=== PATIENT | female | born 1955 ===

== ENCOUNTER 2018-05-18 11:02 | Observation (INO) | payer OTHER ==
[2018-05-18] MEDS ORDERED: Sodium Chloride 0.9% 1,000 ML IV ONE (11:24)
--- NOTE | 2018-05-18 11:40 | C.PDOC ---
History Of Present Illness 63 y/o female,w/PMhx of HTN and hypothyroidism, presents to the ER complaining of palpitations which began in the morning today. Patient was in the clinic and the nurse found that patient has heart rate in the 160's. Patient was found to be in SVT upon arrival to ER. She notes that she has history of similar episodes and her last episode was in February 2018. Currently, patient denies having CP,SOB, nausea, vomiting, fever, and chills. Chief Complaint (Nursing): High Blood Pressure History Per: Patient History/Exam Limitations: no limitations Onset/Duration Of Symptoms: Hrs Current Symptoms Are (Timing): Still Present Severity: Moderate Past Medical History Reviewed: Historical Data, Nursing Documentation, Vital Signs Vital Signs: Last Vital Signs Temp 97.2 F L 05/18/18 11:10 Pulse 171 H 05/18/18 11:10 Resp 20 05/18/18 11:10 BP 108/72 05/18/18 11:10 Pulse Ox 95 05/18/18 11:10 - Medical History PMH: HTN, Hypothyroidism Surgical History: No Surg Hx Family History: States: No Known Family Hx - Social History Hx Tobacco Use: No Hx Alcohol Use: No Hx Substance Use: No - Immunization History Hx Tetanus Toxoid Vaccination: No Hx Influenza Vaccination: No Hx Pneumococcal Vaccination: No Review Of Systems Except As Marked, All Systems Reviewed And Found Negative. Constitutional: Negative for: Fever, Chills Cardiovascular: Positive for: Palpitations. Negative for: Chest Pain Respiratory: Negative for: Shortness of Breath Gastrointestinal: Negative for: Nausea, Vomiting Physical Exam - Physical Exam Appears: Non-toxic, No Acute Distress Skin: Normal Color, Warm, Dry Head: Atraumatic, Normacephalic Eye(s): bilateral: Normal Inspection Nose: Normal Oral Mucosa: Moist Neck: Supple Chest: Symmetrical Cardiovascular: Rhythm Regular, Other (tachycardia) Respiratory: Normal Breath Sounds, No Rales, No Rhonchi, No Wheezing Gastrointestinal/Abdominal: Normal Exam, Soft, No Tenderness, No Guarding, No Rebound Neurological/Psych: Oriented x3, Normal Speech ED Course And Treatment - Laboratory Results Result Diagrams: 05/20/18 06:48 05/20/18 06:48 Interpretation Of ECst EKG: SVT 170 bpm. 2nd EKG: NSR 87 bpm with normal intervals and normal axises O2 Sat by Pulse Oximetry: 95 (RA) Pulse Ox Interpretation: Normal - Other Rad CXR X-Ray: Viewed By Me, Read By Radiologist Interpretation: Date of service: 05/18/2018. PROCEDURE: CHEST RADIOGRAPH, 1 VIEW. HISTORY: chest pain. COMPARISON: None available. FINDINGS: LUNGS: The lungs are well inflated and clear. PLEURA: No pneumothorax or pleural effusion. CARDIOVASCULAR: The heart is normal in size. There are aortic at herosclerotic calcifications present. OSSEOUS STRUCTURES: Within normal limits for the patient's age. VISUALIZED UPPER ABDOMEN: Normal. OTHER FINDINGS: None. IMPRESSION: No active pulmonary disease. Medical Decision Making Medical Decision Making: Plan: --Labs --UA --EKG --CXR --Adenosine IV --IV Fluids --O2 Via Nasal Cannula Updates: Patient has EKG NSR 87 bpm after patient was treated with Adenosine IV. 12:49 Case d/w Dr. Beltran who accepted patient to his service. Patient agreeable w/POC to admit for further evaluation and management. Disposition Counseled Patient/Family Regarding: Studies Performed, Diagnosis - Disposition Disposition: HOSPITALIZED Disposition Time: 12:49 Condition: IMPROVED - Clinical Impression Clinical Impression: SVT (supraventricular tachycardia), Palpitations - Scribe Statement The provider has reviewed the documentation as recorded by the Izabel Tadeo Provider Attestation: All medical record entries made by the Scribe were at my direction and personally dictated by me. I have reviewed the chart and agree that the record accurately reflects my personal performance of the history, physical exam, medical decision making, and the department course for this patient. I have also personally directed, reviewed, and agree with the discharge instructions and disposition.
[2018-05-18 11:48] LABS: BASO # 0.1 K/uL (0.0-0.2); BASO % 0.7 % (0.0-2.0); EOS # 0.2 K/uL (0.0-0.7); LYMPH # 1.5 K/uL (1.0-4.3); LYMPH % 18.3 % (20.0-40.0); MEAN CELL VOLUME 88.2 fL (81.0-99.0); MEAN CORPUSCULAR HEMOGLOBIN 29.3 pg (27.0-31.0); MEAN CORPUSCULAR HGB CONC 33.2 g/dL (33.0-37.0); MONO # 0.6 K/uL (0.0-0.8); MONO % 7.8 % (0.0-10.0); NEUT # 5.8 K/uL (1.8-7.0); NEUT % 71.2 % (50.0-75.0); NRBC % 0.1 % (0.0-2.0); RBC 4.76 Mil/uL (3.80-5.20); RED CELL DISTRIBUTION WIDTH 14.8 % (11.5-14.5); WHITE BLOOD COUNT 8.1 K/uL (4.8-10.8)
--- NOTE | 2018-05-18 11:48 | RAD ---
Date of service: 05/18/2018 PROCEDURE: CHEST RADIOGRAPH, 1 VIEW HISTORY: chest pain COMPARISON: None available. FINDINGS: LUNGS: The lungs are well inflated and clear. PLEURA: No pneumothorax or pleural effusion. CARDIOVASCULAR: The heart is normal in size. There are aortic atherosclerotic calcifications present. OSSEOUS STRUCTURES: Within normal limits for the patient's age. VISUALIZED UPPER ABDOMEN: Normal. OTHER FINDINGS: None. IMPRESSION: No active pulmonary disease.
[2018-05-18 11:58] LABS: INR 1.1; PROTHROMBIN TIME 12.1 SECONDS (9.7-12.2)
[2018-05-18 12:25] LABS: ALB/GLOB RATIO 1.3 (1.0-2.1); ALBUMIN 4.6 g/dL (3.5-5.0); ALT/SGPT 36 U/L (9-52); AST/SGOT 38 U/L (14-36); BLOOD UREA NITROGEN 18 mg/dL (7-17); CALCIUM 9.1 mg/dl (8.6-10.4); GFR NON-AFRICAN AMERICAN > 60
--- NOTE | 2018-05-18 15:18 | CP.PCM.HP ---
History of Present Illness - History of Present Illness History of Present Illness: PGY1 Medicine H and P for Dr. Beltran Pt is 63 year old female with PMHx of hypothyroidism presenting for sudden-onset palpitations that began today around 8:30 in the morning, associated with dizziness, nausea and diaphoresis. Pt was walking at home when she started developing palpitations. She has had palpitations like this, associated with nausea, vomiting, and dizziness in the past. She went to her PMD's office today, and she was noted to have BP 90s/60s and HR of 160. She was sent to the ED. Pt noted to be in SVT at 171, and this episode persisted until she received adenosine 6 mg IVP in the ED. With the palpitations she had diaphoresis, dizziness and nausea, but denies blurry vision, hearing problems, chest pain, dyspnea, focal weakness, and vomiting. This is not her first episode of palpitations. She states she has had this problem for over ten years. Pt states that her last episode was in February 2018, but did not come to the hospital or see any physician for her problem because it resolved shortly afterwards. Currently, she is asymptomatic and has no complaints. During episode she denies chest pain or difficulty breathing. Currently, she denies dysuria, hematuria, back pain, numbness, tingling, paresthesias, abdominal pain, nausea, vomiting PMHx: Hypothyroidism PSHx: Meds: Synthroid (pt does not know the dosage in mcg), metoprolol tartrate 50 mg (but states that she splits 1 tablet into half, takes the first half in AM, and the second half in PM, unconsistently). Pt sparingly takes potassium chloride and vitamin B12, nothing recently. Allergies: NKDA FHx: Mother and father had lung and heart problems but has trouble specifying. Her older sister from cancer. One of her sisters also suffers from episode of palpitations requiring a PM. SHx: Pt denies any tobacco usage, drinks EtOH sparingly, and denies any illicit drug use. 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 She denies any recent travel history and sick contact at home. Pt is up to date on her vaccination. Pt is menopausal. Present on Admission - Present on Admission Any Indicators Present on Admission: No Review of Systems - Review of Systems All systems: reviewed and no additional remarkable complaints except (as per HPI) - Musculoskeletal Additional comments: Pt endorses pain in the Achilles bilaterally and between the first and second metatarsals bilaterally that worsen upon climbing up the stairs for two weeks. Past Patient History - Past Social History Smoking Status: Never Smoked - CARDIAC Hx Hypertension: Yes - ENDOCRINE/METABOLIC Hx Hypothyroidism: Yes - PSYCHIATRIC Hx Substance Use: No Meds Allergies/Adverse Reactions: Allergies Allergy/AdvReac Type Severity Reaction Status Date / Time No Known Allergies Allergy Verified 05/18/18 11:14 Physical Exam - Constitutional Appears: Non-toxic, No Acute Distress - Head Exam Head Exam: ATRAUMATIC, NORMAL INSPECTION - Eye Exam Eye Exam: EOMI, Normal appearance, PERRL - ENT Exam ENT Exam: Mucous Membranes Moist - Neck Exam Neck exam: Positive for: Normal Inspection. Negative for: Lymphadenopathy, Tenderness - Respiratory Exam Respiratory Exam: Clear to Auscultation Bilateral. absent: Decreased Breath Sounds, Rales, Rhonchi, Wheezes, Respiratory Distress, Stridor - Cardiovascular Exam Cardiovascular Exam: REGULAR RHYTHM, +S1, +S2. absent: Bradycardia, Tachycardia, Diastolic murmur, Irregular Rhythm, JVD, Systolic Murmur - GI/Abdominal Exam GI & Abdominal Exam: Normal Bowel Sounds, Soft. absent: Distended, Firm, Guarding, Rebound, Rigid, Tenderness - Extremities Exam Extremities exam: Positive for: normal capillary refill, normal inspection, tenderness (mild tenderness to bilateral achilles and 1st and 2nd interdigitous area; no erythema, no edema, no ecchymosis), pedal pulses present (2+ radial bilaterally, 2+ DP bilaterally). Negative for: calf tenderness, pedal edema - Back Exam Back exam: NORMAL INSPECTION - Neurological Exam Neurological exam: Alert, Oriented x3 - Psychiatric Exam Psychiatric exam: Normal Affect, Normal Mood - Skin Skin Exam: Intact, Normal Color, Warm Results - Vital Signs Recent Vital Signs: Last Vital Signs Temp 99.1 F 05/18/18 14:25 Pulse 77 05/18/18 14:25 Resp 22 05/18/18 14:25 BP 96/50 L 05/18/18 14:25 Pulse Ox 95 05/18/18 14:34 - Labs Result Diagrams: 05/18/18 11:15 05/18/18 11:15 Labs: Laboratory Results - last 24 hr 05/18/18 05/18/1805/18/19 11:15 11:15 11:15 WBC 8.1 RBC 4.76 Hgb 14.0 Hct 42.0 MCV 88.2 MCH 29.3 MCHC 33.2 RDW 14.8 H Plt Count 445 H D MPV 7.0 L Neut % (Auto) 71.2 Lymph % (Auto) 18.3 L Sac % (Auto) 7.8 Eos % (Auto) 2.0 Baso % (Auto) 0.7 Neut # (Auto) 5.8 Lymph # (Auto) 1.5 Sac # (Auto) 0.6 Eos # (Auto) 0.2 Baso # (Auto) 0.1 PT 12.1 INR 1.1 APTT 35 H Sodium 139 Potassium 3.7 Chloride 103 Carbon Dioxide 25 Anion Gap 14 BUN 18 H Creatinine 0.9 Est GFR ( Amer) > 60 Est GFR (Non-Af Amer) > 60 Random Glucose 136 H D Hemoglobin A1c Calcium 9.1 Phosphorus 4.3 Magnesium 1.9 Total Bilirubin 0.5 AST 38 H ALT 36 Alkaline Phosphatase 91 Troponin I < 0.0120 Total Protein 8.1 Albumin 4.6 Globulin 3.5 Albumin/Globulin Ratio 1.3 TSH 3rd Generation 4.02 05/18/18 14:17 WBC RBC Hgb Hct MCV MCH MCHC RDW Plt Count MPV Neut % (Auto) Lymph % (Auto) Sac % (Auto) Eos % (Auto) Baso % (Auto) Neut # (Auto) Lymph # (Auto) Sac # (Auto) Eos # (Auto) Baso # (Auto) PT INR APTT Sodium Potassium Chloride Carbon Dioxide Anion Gap BUN Creatinine Est GFR ( Amer) Est GFR (Non-Af Amer) Random Glucose Hemoglobin A1c 6.0 Calcium Phosphorus Magnesium Total Bilirubin AST ALT Alkaline Phosphatase Troponin I Total Protein Albumin Globulin Albumin/Globulin Ratio TSH 3rd Generation Assessment & Plan (1) SVT (supraventricular tachycardia) Assessment and Plan: Symptomatic SVT, with BP 95/65 EKG shows SVT at 171 on admission Resolved with Adenosine 6 mg IVP x1 in the ED S/p 1L of NS IVF bolus in the ED Repeat BP during examination is 112/51 CXR shows no active pulmonary disease Initial troponin is normal, EKG is NSR without STTW changes Will trend TRACEY x2 with EKGs q6h x2 Cardiology, Dr. Torres, consulted Case d/w Dr. Humphries ASA81 mg PO daily, Nuclear stress test in am, echocardiogram, restart home metoprolol tartrate 25 mg PO BID, heparin ppx Requests EP cardio consult EP cardiology, Dr. Tawana Humphries, consulted. Recommendations appreciated. Tele observation F/u Lipid panel, UDS Status: Acute (2) Impaired glucose tolerance Assessment and Plan: Hgb A1c is 6.0 Non fasting glucose is 136 on admission No need for accuchecks or insulin at this time Will continue to monitor Status: Acute (3) Hypothyroidism Assessment and Plan: TSH is normal at 4.02, Free T4 is 1.02 No indication for Synthroid at this time Status: Acute (4) Prophylactic measure Assessment and Plan: GI PPx with pepcid 20 mg PO daily VTE ppx with heparin 5000u SC q12, SCDs NPO past midnight except meds for nuclear stress test in am Status: Acute - Assessment and Plan (Free Text) Assessment: Pt is 63 year old female with PMHx of hypothyroidism presenting for sudden-onset palpitations that began today, associated with dizziness, nausea and diaphoresis. Noted to be in SVT on EKG in the ED, which resolved with Adenosine 6 mg IVP in the ED. Case discussed with Dr. Beltran
[2018-05-18 16:47] VITALS: RESP 20
[2018-05-18 17:17] LABS: BARBITURATES, UR NEGATIVE (NEGATIVE); BENZODIAZEPINES, UR NEGATIVE (NEGATIVE); OPIATES, UR NEGATIVE (NEGATIVE); PHENCYCLIDINE, UR NEGATIVE (NEGATIVE)
[2018-05-18 17:39] LABS: CK-MB 1.73 ng/mL (0.0-3.38); TROPONIN I 0.055 ng/mL (0.00-0.120)
--- NOTE | 2018-05-18 22:13 | CP.PCM.CON ---
History of Present Illness - History of Present Illness History of Present Illness: Reason For Consultation: SVT and Palpitations Pt is 63 year old female with PMHx of hypothyroidism presenting for sudden-onset palpitations that began today around 8:30 in the morning, associated with dizziness, nausea and diaphoresis. Pt was walking at home when she started developing palpitations. She has had palpitations like this, associated with nausea, vomiting, and dizziness in the past. She went to her PMD's office today, and she was noted to have BP 90s/60s and HR of 160. She was sent to the ED. Pt noted to be in SVT at 171, and this episode persisted until she received adenosine 6 mg IVP in the ED. With the palpitations she had diaphoresis, dizziness and nausea, but denies blurry vision, hearing problems, chest pain, dyspnea, focal weakness, and vomiting. This is not her first episode of palpitations. She states she has had this problem for over ten years. Pt states that her last episode was in February 2018, but did not come to the hospital or see any physician for her problem because it resolved shortly afterwards. Currently, she is asymptomatic and has no complaints. During episode she denies chest pain or difficulty breathing. Currently, she denies dysuria, hematuria, back pain, numbness, tingling, paresthesias, abdominal pain, nausea, vomiting PMHx: Hypothyroidism PSHx: Meds: Synthroid (pt does not know the dosage in mcg), metoprolol tartrate 50 mg (but states that she splits 1 tablet into half, takes the first half in AM, and the second half in PM, unconsistently). Pt sparingly takes potassium chloride and vitamin B12, nothing recently. Allergies: NKDA FHx: Mother and father had lung and heart problems but has trouble specifying. Her older sister from cancer. One of her sisters also suffers from episode of palpitations requiring a PM. SHx: Pt denies any tobacco usage, drinks EtOH sparingly, and denies any illicit drug use. 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 She denies any recent travel history and sick contact at home. Pt is up to date on her vaccination. Pt is menopausal. Present on Admission - Present on Admission Any Indicators Present on Admission: No Review of Systems - Review of Systems All systems: reviewed and no additional remarkable complaints except (as per HPI) - Musculoskeletal Additional comments: Pt endorses pain in the Achilles bilaterally and between the first and second metatarsals bilaterally that worsen upon climbing up the stairs for two weeks. Meds Allergies/Adverse Reactions: Allergies Allergy/AdvReac Type Severity Reaction Status Date / Time No Known Allergies Allergy Verified 05/18/18 11:14 Physical Exam - Constitutional Appears: Non-toxic, No Acute Distress - Head Exam Head Exam: ATRAUMATIC, NORMAL INSPECTION - Eye Exam Eye Exam: EOMI, Normal appearance, PERRL - ENT Exam ENT Exam: Mucous Membranes Moist - Neck Exam Neck exam: Positive for: Normal Inspection. Negative for: Lymphadenopathy, Tenderness - Respiratory Exam Respiratory Exam: Clear to Auscultation Bilateral. absent: Decreased Breath Sounds, Rales, Rhonchi, Wheezes, Respiratory Distress, Stridor - Cardiovascular Exam Cardiovascular Exam: REGULAR RHYTHM, +S1, +S2. absent: Bradycardia, Tachycardia, Diastolic murmur, Irregular Rhythm, JVD, Systolic Murmur - GI/Abdominal Exam GI & Abdominal Exam: Normal Bowel Sounds, Soft. absent: Distended, Firm, Guarding, Rebound, Rigid, Tenderness - Extremities Exam Extremities exam: Positive for: normal capillary refill, normal inspection, tenderness (mild tenderness to bilateral achilles and 1st and 2nd interdigitous area; no erythema, no edema, no ecchymosis), pedal pulses present (2+ radial bilaterally, 2+ DP bilaterally). Negative for: calf tenderness, pedal edema - Back Exam Back exam: NORMAL INSPECTION - Neurological Exam Neurological exam: Alert, Oriented x3 - Psychiatric Exam Psychiatric exam: Normal Affect, Normal Mood - Skin Skin Exam: Intact, Normal Color, Warm Results - Vital Signs Recent Vital Signs: Last Vital Signs Temp 99.1 F 05/18/18 14:25 Pulse 77 05/18/18 14:25 Resp 22 05/18/18 14:25 BP 96/50 L 05/18/18 14:25 Pulse Ox 95 05/18/18 14:34 - Labs Result Diagrams: 05/18/18 11:15 05/18/18 11:15 Labs: Laboratory Results - last 24 hr 05/18/18 05/18/18 05/18/18 11:15 11:15 11:15 WBC 8.1 RBC 4.76 Hgb 14.0 Hct 42.0 MCV 88.2 MCH 29.3 MCHC 33.2 RDW 14.8 H Plt Count 445 H D MPV 7.0 L Neut % (Auto) 71.2 Lymph % (Auto) 18.3 L [place] % (Auto) 7.8 Eos % (Auto) 2.0 Baso % (Auto) 0.7 Neut # (Auto) 5.8 Lymph # (Auto) 1.5 [place] # (Auto) 0.6 Eos # (Auto) 0.2 Baso # (Auto) 0.1 PT 12.1 INR 1.1 APTT 35 H Sodium 139 Potassium 3.7 Chloride 103 Carbon Dioxide 25 Anion Gap 14 BUN 18 H Creatinine 0.9 Est GFR ( Amer) > 60 Est GFR (Non-Af Amer) > 60 Random Glucose 136 H D Hemoglobin A1c Calcium 9.1 Phosphorus 4.3 Magnesium 1.9 Total Bilirubin 0.5 AST 38 H ALT 36 Alkaline Phosphatase 91 Troponin I < 0.0120 Total Protein 8.1 Albumin 4.6 Globulin 3.5 Albumin/Globulin Ratio 1.3 TSH 3rd Generation 4.02 05/18/18 14:17 WBC RBC Hgb Hct MCV MCH MCHC RDW Plt Count MPV Neut % (Auto) Lymph % (Auto) [place] % (Auto) Eos % (Auto) Baso % (Auto) Neut # (Auto) Lymph # (Auto) [place] # (Auto) Eos # (Auto) Baso # (Auto) PT INR APTT Sodium Potassium Chloride Carbon Dioxide Anion Gap BUN Creatinine Est GFR ( Amer) Est GFR (Non-Af Amer) Random Glucose Hemoglobin A1c 6.0 Calcium Phosphorus Magnesium Total Bilirubin AST ALT Alkaline Phosphatase Troponin I Total Protein Albumin Globulin Albumin/Globulin Ratio TSH 3rd Generation Assessment & Plan (1) SVT (supraventricular tachycardia) Assessment and Plan: Symptomatic SVT, with BP 95/65 EKG shows SVT at 171 on admission Resolved with Adenosine 6 mg IVP x1 in the ED S/p 1L of NS IVF bolus in the ED Repeat BP during examination is 112/51 CXR shows no active pulmonary disease Initial troponin is normal, EKG is NSR without STTW changes Will trend TRACEY x2 with EKGs q6h x2 Case d/w Dr. Humphries ASA81 mg PO daily, Nuclear stress test in am, echocardiogram, restart home metoprolol tartrate 25 mg PO BID, heparin ppx Requests EP cardio consult EP cardiology, Dr. Tawana Humphries, consulted. Recommendations appreciated. Tele observation F/u Lipid panel, UDS Status: Acute (2) Impaired glucose tolerance Assessment and Plan: Hgb A1c is 6.0 Non fasting glucose is 136 on admission No need for accuchecks or insulin at this time Will continue to monitor Status: Acute (3) Hypothyroidism Assessment and Plan: TSH is normal at 4.02, Free T4 is 1.02 No indication for Synthroid at this time Status: Acute (4) Prophylactic measure Assessment and Plan: GI PPx with pepcid 20 mg PO daily VTE ppx with heparin 5000u SC q12, SCDs NPO past midnight except meds for nuclear stress test in am Status: Acute Past Patient History - Past Social History Smoking Status: Never Smoked - CARDIAC Hx Hypertension: Yes - ENDOCRINE/METABOLIC Hx Hypothyroidism: Yes - PSYCHIATRIC Hx Substance Use: No Meds Allergies/Adverse Reactions: Allergies Allergy/AdvReac Type Severity Reaction Status Date / Time No Known Allergies Allergy Verified 05/18/18 11:14 - Medications Medications: Current Medications Aspirin (Ecotrin) 81 mg PO DAILY [facility] Last Admin: 05/18/18 17:27 Dose: 81 mg Famotidine (Pepcid) 20 mg PO DAILY [facility] Heparin Sodium (Porcine) (Heparin) 5,000 units SC Q12 [facility] Last Admin: 05/18/18 21:44 Dose: 5,000 units Metoprolol Tartrate (Lopressor) 25 mg PO BID [facility] Last Admin: 05/18/18 17:27 Dose: 25 mg Pneumococcal Polyvalent Vaccine (Pneumovax 23 Vaccine) 0.5 ml IM .ONCE ONE Stop: 05/20/18 10:01 Results - Vital Signs Recent Vital Signs: Last Vital Signs Temp 97.7 F 05/18/18 16:15 Pulse 75 05/18/18 16:31 Resp 20 05/18/18 16:15 BP 110/65 05/18/18 17:27 Pulse Ox 96 05/18/18 20:06 - Labs Result Diagrams: 05/18/18 11:15 05/18/18 11:15 Labs: Laboratory Results - last 24 hr 05/18/18 05/18/18 05/18/18 11:15 11:15 11:15 WBC 8.1 RBC 4.76 Hgb 14.0 Hct 42.0 MCV 88.2 MCH 29.3 MCHC 33.2 RDW 14.8 H Plt Count 445 H D MPV 7.0 L Neut % (Auto) 71.2 Lymph % (Auto) 18.3 L [place] % (Auto) 7.8 Eos % (Auto) 2.0 Baso % (Auto) 0.7 Neut # (Auto) 5.8 Lymph # (Auto) 1.5 [place] # (Auto) 0.6 Eos # (Auto) 0.2 Baso # (Auto) 0.1 PT 12.1 INR 1.1 APTT 35 H Sodium 139 Potassium 3.7 Chloride 103 Carbon Dioxide 25 Anion Gap 14 BUN 18 H Creatinine 0.9 Est GFR ( Amer) > 60 Est GFR (Non-Af Amer) > 60 Random Glucose 136 H D Hemoglobin A1c Calcium 9.1 Phosphorus 4.3 Magnesium 1.9 Total Bilirubin 0.5 AST 38 H ALT 36 Alkaline Phosphatase 91 Total Creatine Kinase CK-MB (Mass) Troponin I < 0.0120 Total Protein 8.1 Albumin 4.6 Globulin 3.5 Albumin/Globulin Ratio 1.3 Free T4 TSH 3rd Generation 4.02 Urine Opiates Screen Urine Methadone Screen Ur Barbiturates Screen Ur Phencyclidine Scrn Ur Amphetamines Screen U Benzodiazepines Scrn U Oth Cocaine Metabols U Cannabinoids Screen 05/18/18 05/18/18 05/18/18 14:17 14:50 15:36 WBC RBC Hgb Hct MCV MCH MCHC RDW Plt Count MPV Neut % (Auto) Lymph % (Auto) [place] % (Auto) Eos % (Auto) Baso % (Auto) Neut # (Auto) Lymph # (Auto) [place] # (Auto) Eos # (Auto) Baso # (Auto) PT INR APTT Sodium Potassium Chloride Carbon Dioxide Anion Gap BUN Creatinine Est GFR ( Amer) Est GFR (Non-Af Amer) Random Glucose Hemoglobin A1c 6.0 Calcium Phosphorus Magnesium Total Bilirubin AST ALT Alkaline Phosphatase Total Creatine Kinase CK-MB (Mass) Troponin I Total Protein Albumin Globulin Albumin/Globulin Ratio Free T4 1.02 TSH 3rd Generation Urine Opiates Screen Negative Urine Methadone Screen Negative Ur Barbiturates Screen Negative Ur Phencyclidine Scrn Negative Ur Amphetamines Screen Negative U Benzodiazepines Scrn Negative U Oth Cocaine Metabols Negative U Cannabinoids Screen Negative 05/18/18 17:03 WBC RBC Hgb Hct MCV MCH MCHC RDW Plt Count MPV Neut % (Auto) Lymph % (Auto) [place] % (Auto) Eos % (Auto) Baso % (Auto) Neut # (Auto) Lymph # (Auto) [place] # (Auto) Eos # (Auto) Baso # (Auto) PT INR APTT Sodium Potassium Chloride Carbon Dioxide Anion Gap BUN Creatinine Est GFR ( Amer) Est GFR (Non-Af Amer) Random Glucose Hemoglobin A1c Calcium Phosphorus Magnesium Total Bilirubin AST ALT Alkaline Phosphatase Total Creatine Kinase 97 CK-MB (Mass) 1.73 Troponin I 0.0550 Total Protein Albumin Globulin Albumin/Globulin Ratio Free T4 TSH 3rd Generation Urine Opiates Screen Urine Methadone Screen Ur Barbiturates Screen Ur Phencyclidine Scrn Ur Amphetamines Screen U Benzodiazepines Scrn U Oth Cocaine Metabols U Cannabinoids Screen
[2018-05-18 22:56] LABS: CK-MB 1.41 ng/mL (0.0-3.38); TROPONIN I 0.049 ng/mL (0.00-0.120)
[2018-05-19 07:12] LABS: BASO % 0.8 % (0.0-2.0); EOS # 0.2 K/uL (0.0-0.7); EOS % 4.6 % (0.0-4.0); LYMPH # 1.3 K/uL (1.0-4.3); LYMPH % 28.8 % (20.0-40.0); MEAN CELL VOLUME 88.5 fL (81.0-99.0); MEAN CORPUSCULAR HEMOGLOBIN 29.2 pg (27.0-31.0); MEAN PLATELET VOLUME 6.9 fL (7.2-11.7); MONO # 0.5 K/uL (0.0-0.8); MONO % 10.4 % (0.0-10.0); NEUT # 2.5 K/uL (1.8-7.0); NEUT % 55.4 % (50.0-75.0); NRBC % 0.1 % (0.0-2.0); RBC 4.11 Mil/uL (3.80-5.20); RED CELL DISTRIBUTION WIDTH 14.5 % (11.5-14.5); WHITE BLOOD COUNT 4.6 K/uL (4.8-10.8)
[2018-05-19] MEDS ORDERED: Caffeine Citrated **INJ** 20 MG/ML IV ONE (07:47)
[2018-05-19 07:55] LABS: ALB/GLOB RATIO 1.2 (1.0-2.1); ALBUMIN 3.9 g/dL (3.5-5.0); ALT/SGPT 32 U/L (9-52); AST/SGOT 37 U/L (14-36); BLOOD UREA NITROGEN 22 mg/dL (7-17); CALCIUM 8.5 mg/dl (8.6-10.4); GFR NON-AFRICAN AMERICAN > 60; HDL CHOLESTEROL 52 mg/dL (30-70)
[2018-05-19 08:04] LABS: LDL CHOLESTEROL 81 mg/dL (0-129)
[2018-05-19 08:16] LABS: HEMOGLOBIN 12.1 g/dL (11.0-16.0)
--- NOTE | 2018-05-19 13:47 | CP.PCM.PN ---
Subjective - Date & Time of Evaluation Date of Evaluation: 05/19/18 Time of Evaluation: 13:41 - Subjective Subjective: Julio C Alegria PGY1 Progress Note for Dr. Beltran pt was examined at bedside this morning. She reports improvement in her symptoms, denying any further palpitations, nausea, shortness of breath, or chest pain. Objective - Vital Signs/Intake and Output Vital Signs (last 24 hours): Temp Pulse Resp BP Pulse Ox 97.9 F 67 20 130/70 99 05/19/18 04:00 05/19/18 04:00 05/19/18 04:00 05/19/18 11:06 05/19/18 04:00 - Medications Medications: Current Medications Aspirin (Ecotrin) 81 mg PO DAILY [facility] Last Admin: 05/19/18 11:07 Dose: 81 mg Famotidine (Pepcid) 20 mg PO DAILY [facility] Last Admin: 05/19/18 11:06 Dose: 20 mg Heparin Sodium (Porcine) (Heparin) 5,000 units SC Q12 [facility] Last Admin: 05/19/18 11:07 Dose: 5,000 units Metoprolol Tartrate (Lopressor) 25 mg PO BID [facility] Last Admin: 05/19/18 11:06 Dose: 25 mg Pneumococcal Polyvalent Vaccine (Pneumovax 23 Vaccine) 0.5 ml IM .ONCE ONE Stop: 05/20/18 10:01 - Labs Labs: 05/19/18 07:04 05/19/18 07:04 PT 12.1 SECONDS (9.7-12.2) 05/18/18 11:15 INR 1.1 05/18/18 11:15 APTT 35 SECONDS (21-34) H 05/18/18 11:15 - Constitutional Appears: Well, No Acute Distress - Head Exam Head Exam: ATRAUMATIC, NORMOCEPHALIC - Eye Exam Eye Exam: EOMI, Normal appearance Pupil Exam: NORMAL ACCOMODATION - Neck Exam Neck Exam: Normal Inspection - Respiratory Exam Respiratory Exam: Clear to Ausculation Bilateral, NORMAL BREATHING PATTERN. absent: Rales, Rhonchi, Wheezes - Cardiovascular Exam Cardiovascular Exam: REGULAR RHYTHM, +S1, +S2. absent: Gallop, Rubs, Murmur - GI/Abdominal Exam GI & Abdominal Exam: Soft, Normal Bowel Sounds. absent: Tenderness - Extremities Exam Extremities Exam: Normal Inspection. absent: Pedal Edema - Neurological Exam Neurological Exam: Alert, Awake, Oriented x3 Neuro motor strength exam: Left Upper Extremity: 5, Right Upper Extremity: 5, Left Lower Extremity: 5, Right Lower Extremity: 5 - Psychiatric Exam Psychiatric exam: Normal Affect, Normal Mood - Skin Skin Exam: Normal Color Assessment and Plan - Assessment and Plan (Free Text) Assessment: Pt is 63yo F with h/o hypothyroidism admitted for SVT, treated with adenosine. No further episodes. f/u ECHO and stress test. Plan: (1) SVT (supraventricular tachycardia) Assessment and Plan: improved, no further episodes since admission EKG shows SVT at 171 on admission Resolved with Adenosine 6 mg IVP x1 in the ED Troponins neg x3, EKGs NSR x3 CXR shows no active pulmonary disease TSH, lipids wnl UDS negative Cardiology, Dr. Torres, consulted ECHO and stress test performed, f/u results EP cardiology, Dr. Tawana Humphries, consulted - f/u recs Tele observation Status: Acute (2) Impaired glucose tolerance Assessment and Plan: Hgb A1c is 6.0 Non fasting glucose is 136 on admission No need for accuchecks or insulin at this time Will continue to monitor Status: Acute (3) Hypothyroidism Assessment and Plan: TSH is normal at 4.02, Free T4 is 1.02 No indication for Synthroid at this time Status: Acute (4) Prophylactic measure Assessment and Plan: GI PPx with pepcid 20 mg PO daily VTE ppx with heparin 5000u SC q12, SCDs HHD Status: Acute Case reviewed with Dr. Beltran
--- NOTE | 2018-05-19 16:49 | CARD ---
APPROVED REPORT Date of service: 05/19/2018 EXAM: Two-dimensional and M-mode echocardiogram with Doppler and color Doppler. Other Information Quality : GoodRhythm : INDICATION Abnormal EKG/Arrhythmia Dizziness and Vertigo Cardiomyopathy Palpitations SVT 2D DIMENSIONS IVSd0.8 (0.7-1.1cm)LVDd3.9 (3.9-5.9cm) PWd1.0 (0.7-1.1cm)LA Bxnlwd15 (18-58mL) LVDs2.1 (2.5-4.0cm)FS (%) 46.1 % LVEF (%)74.0 (>50%)LVEF (B[place]'s)69.39 % IVC0.00 cm M-Mode DIMENSIONS RVDd2.73 (2.1-3.2cm)Left Atrium (MM)3.27 (2.5-4.0cm) IVSd0.95 (0.7-1.1cm)Aortic Root2.88 (2.2-3.7cm) LVDd4.63 (4.0-5.6cm)Aortic Cusp Exc.1.96 (1.5-2.0cm) PWd1.07 (0.7-1.1cm)FS (%) 54 % LVDs2.13 (2.0-3.8cm)TAPSE25.38 cm LVEF (%)75 (>50%) Mitral Valve MV E Jvbevdbm76.3cm/sMV A Nekuprjj42.2cm/sE/A ratio1.3 TDI Lateral E' Peak V10.61cm/sMedial E' Peak V8.80cm/sE/Lateral E'6.5 E/Medial E'7.9 Tricuspid Valve TR Peak Oxlqnfdp305uk/sTR Peak Gr.01pnGaVGQN55nzZf LEFT VENTRICLE The left ventricle is normal size. There is normal left ventricular wall thickness. The left ventricular function is normal. The left ventricular ejection fraction is within the normal range. There is normal LV segmental wall motion. The left ventricular diastolic function is normal. RIGHT VENTRICLE The right ventricle is normal size. There is normal right ventricular wall thickness. The right ventricular systolic function is normal. ATRIA The left atrium size is normal. The right atrium size is normal. AORTIC VALVE The aortic valve is mildly thickened. No aortic regurgitation is present. There is no aortic valvular stenosis. MITRAL VALVE The mitral valve is moderately thickened. There is no evidence of mitral valve prolapse. There is no mitral valve stenosis. TRICUSPID VALVE There is trace tricuspid regurgitation. PULMONIC VALVE There is trace pulmonic valvular regurgitation. GREAT VESSELS The aortic root is normal in size. The IVC is normal in size and collapses >50% with inspiration. PERICARDIAL EFFUSION There is no pericardial effusion. <Conclusion> There is normal left ventricular wall thickness. The left ventricular function is normal. The left ventricular ejection fraction is within the normal range. There is normal LV segmental wall motion. The left ventricular diastolic function is normal.
--- NOTE | 2018-05-19 19:45 | CARD ---
APPROVED REPORT Date of service: 05/18/2018 EKG Measurement Heart [id number] CT [id number] <Conclusion> Normal sinus rhythm Normal ECG
--- NOTE | 2018-05-19 19:51 | CARD ---
APPROVED REPORT Date of service: 05/18/2018 EKG Measurement Heart [id number] <Conclusion> Normal sinus rhythm Normal ECG
--- NOTE | 2018-05-19 19:51 | CARD ---
APPROVED REPORT Date of service: 05/18/2018 EKG Measurement Heart [id number] <Conclusion> Supraventricular tachycardia Nonspecific ST abnormality Abnormal ECG
--- NOTE | 2018-05-19 22:51 | CP.PCM.CON ---
History of Present Illness - History of Present Illness History of Present Illness: Cardiac-Electrophysiology consult Re: Tachycardia Chart records imaging and telemetry reviewed Ms. Bess presented with palpitations dizziness and nausea and was found to be hypotensive and in tachycardia; EMS administered adenosine with return to sinus rhythm She has had a history of palpitations for the last 10 years recurring periodically; the last episode was in February 2018 She denied smoking alcohol or substance abuse Past medical history significant for thyroid disease and systemic hypertension Medications; synthroid metroprolol Exam Normal venous pressures No goiter Clear lungs No S3 No edema EKG: sinus Labs: noted Ms Bess has recurrent narrow complex regular adenosine sensitive tachycardia with a short RP relation consistent with an AV kandy reentrant tachycardia Options should include a rhythm control strategy (cf. AV kandy blockers alone) given persistence recurrence despite beta blockers and associated symptoms with a potential to traumatic fall Choices include an anti-arrhythmic (amiodarone would confound thyroid disease; sotalol is a choice with rare pro-arrhythmia) versus ablation (rare risks of AV block) In the interim would ascertain thyroid function status and increase beta blockade Past Patient History - Past Social History Smoking Status: Never Smoked - CARDIAC Hx Hypertension: Yes - ENDOCRINE/METABOLIC Hx Hypothyroidism: Yes - PSYCHIATRIC Hx Substance Use: No Meds Allergies/Adverse Reactions: Allergies Allergy/AdvReac Type Severity Reaction Status Date / Time No Known Allergies Allergy Verified 05/18/18 11:14 - Medications Medications: Current Medications Aspirin (Ecotrin) 81 mg PO DAILY [facility] Last Admin: 05/19/18 11:07 Dose: 81 mg Famotidine (Pepcid) 20 mg PO DAILY [facility] Last Admin: 05/19/18 11:06 Dose: 20 mg Heparin Sodium (Porcine) (Heparin) 5,000 units SC Q12 [facility] Last Admin: 05/19/18 22:11 Dose: 5,000 units Metoprolol Tartrate (Lopressor) 25 mg PO BID [facility] Last Admin: 05/19/18 18:30 Dose: 25 mg Pneumococcal Polyvalent Vaccine (Pneumovax 23 Vaccine) 0.5 ml IM .ONCE ONE Stop: 05/20/18 10:01 Results - Vital Signs Recent Vital Signs: Last Vital Signs Temp 98.3 F 05/19/18 15:05 Pulse 69 05/19/18 15:05 Resp 20 05/19/18 15:05 BP 123/65 03/07/19 18:30 Pulse Ox 99 05/19/18 15:05 - Labs Result Diagrams: 05/19/18 07:04 05/19/18 07:04 Labs: Laboratory Results - last 24 hr 05/18/18 05/19/18 05/19/18 22:05 07:04 07:04 WBC 4.6 L RBC 4.11 Hgb 12.1 Hct 36.7 MCV 88.5 MCH 29.2 MCHC 33.0 RDW 14.5 Plt Count 344 D MPV 6.9 L Neut % (Auto) 55.4 Lymph % (Auto) 28.8 [place] % (Auto) 10.4 H Eos % (Auto) 4.6 H Baso % (Auto) 0.8 Neut # (Auto) 2.5 Lymph # (Auto) 1.3 [place] # (Auto) 0.5 Eos # (Auto) 0.2 Baso # (Auto) 0.0 Sodium 140 Potassium 4.1 Chloride 107 Carbon Dioxide 24 Anion Gap 13 BUN 22 H Creatinine 0.9 Est GFR ( Amer) > 60 Est GFR (Non-Af Amer) > 60 Random Glucose 95 D Calcium 8.5 L Phosphorus 3.6 Magnesium 2.0 Total Bilirubin 0.5 AST 37 H ALT 32 Alkaline Phosphatase 72 CK-MB (Mass) 1.41 Troponin I 0.0490 Total Protein 7.0 Albumin 3.9 Globulin 3.1 Albumin/Globulin Ratio 1.2 Triglycerides 103 Cholesterol 163 LDL Cholesterol Direct 81 HDL Cholesterol 52
--- NOTE | 2018-05-20 01:35 | CP.PCM.PN ---
Subjective - Date & Time of Evaluation Date of Evaluation: 05/19/18 Time of Evaluation: 20:20 - Subjective Subjective: Patient seen and evaluated denies chest pain and dyspnea Stress test: Normal EF : Normal Objective - Vital Signs/Intake and Output Vital Signs (last 24 hours): Temp Pulse Resp BP Pulse Ox 98 F 68 20 127/66 97 05/19/18 23:00 05/19/18 23:14 05/19/18 23:00 05/19/18 23:00 05/19/18 23:00 Intake and Output: 05/19/18 05/20/18 18:59 06:59 Intake Total 600 480 Balance 600 480 - Medications Medications: Current Medications Aspirin (Ecotrin) 81 mg PO DAILY [facility] Last Admin: 05/19/18 11:07 Dose: 81 mg Famotidine (Pepcid) 20 mg PO DAILY [facility] Last Admin: 05/19/18 11:06 Dose: 20 mg Heparin Sodium (Porcine) (Heparin) 5,000 units SC Q12 [facility] Last Admin: 05/19/18 22:11 Dose: 5,000 units Metoprolol Tartrate (Lopressor) 25 mg PO BID [facility] Last Admin: 05/19/18 18:30 Dose: 25 mg Pneumococcal Polyvalent Vaccine (Pneumovax 23 Vaccine) 0.5 ml IM .ONCE ONE Stop: 05/20/18 10:01 - Labs Labs: 05/19/18 07:04 05/19/18 07:04 PT 12.1 SECONDS (9.7-12.2) 05/18/18 11:15 INR 1.1 05/18/18 11:15 APTT 35 SECONDS (21-34) H 05/18/18 11:15
[2018-05-20 06:56] LABS: BASO # 0.1 K/uL (0.0-0.2); BASO % 1.3 % (0.0-2.0); EOS # 0.2 K/uL (0.0-0.7); EOS % 5.1 % (0.0-4.0); HEMOGLOBIN 12.3 g/dL (11.0-16.0); LYMPH # 1.3 K/uL (1.0-4.3); LYMPH % 29.9 % (20.0-40.0); MEAN CELL VOLUME 88.3 fL (81.0-99.0); MEAN CORPUSCULAR HGB CONC 32.9 g/dL (33.0-37.0); MONO # 0.4 K/uL (0.0-0.8); MONO % 9.2 % (0.0-10.0); NEUT # 2.4 K/uL (1.8-7.0); NEUT % 54.5 % (50.0-75.0); RBC 4.24 Mil/uL (3.80-5.20); RED CELL DISTRIBUTION WIDTH 14.4 % (11.5-14.5); WHITE BLOOD COUNT 4.5 K/uL (4.8-10.8)
[2018-05-20 07:47] LABS: ALB/GLOB RATIO 1.2 (1.0-2.1); ALBUMIN 4.1 g/dL (3.5-5.0); ALT/SGPT 23 U/L (9-52); AST/SGOT 31 U/L (14-36); BLOOD UREA NITROGEN 20 mg/dL (7-17); GFR NON-AFRICAN AMERICAN > 60
[2018-05-20] MEDS ORDERED: Pneumococcal 23-Valent Vaccine IM ONE (10:00)
--- NOTE | 2018-05-20 13:55 | CP.PCM.DIS ---
Provider - Provider Date of Admission: 05/18/18 12:55 Attending physician: Ge Beltran Jr, MD Consults: 05/18/18 14:54 Cardiology Consult Routine Comment: Consulting Provider: Florian Torres Consulting Physician: Florian Torres Reason for Consult: SVT, hypotension, s/p adenosine 6 mg IVp, currently asymp 05/18/18 15:02 Physician Consult Routine Comment: Consulting Provider: Jose Humphries Consulting Physician: Jose Humphries Reason for Consult: symptomatic SVT; NSR s/p adenosine 6 mg IVP Time Spent in preparation of Discharge (in minutes): 70 Diagnosis - Discharge Diagnosis (1) SVT (supraventricular tachycardia) Status: Acute (2) Hypothyroidism Status: Chronic Hospital Course - Lab Results Lab Results: Most Recent Lab Values WBC 4.5 K/uL (4.8-10.8) L 05/20/18 06:48 RBC 4.24 Mil/uL (3.80-5.20) 05/20/18 06:48 Hgb 12.3 g/dL (11.0-16.0) 05/20/18 06:48 Hct 37.4 % (34.0-47.0) 05/20/18 06:48 MCV 88.3 fL (81.0-99.0) 05/20/18 06:48 MCH 29.0 pg (27.0-31.0) 05/20/18 06:48 MCHC 32.9 g/dL (33.0-37.0) L 05/20/18 06:48 RDW 14.4 % (11.5-14.5) 05/20/18 06:48 Plt Count 375 K/uL (130-400) 05/20/18 06:48 MPV 7.0 fL (7.2-11.7) L 05/20/18 06:48 Neut % (Auto) 54.5 % (50.0-75.0) 05/20/18 06:48 Lymph % (Auto) 29.9 % (20.0-40.0) 05/20/18 06:48 [place] % (Auto) 9.2 % (0.0-10.0) 05/20/18 06:48 Eos % (Auto) 5.1 % (0.0-4.0) H 05/20/18 06:48 Baso % (Auto) 1.3 % (0.0-2.0) 05/20/18 06:48 Neut # (Auto) 2.4 K/uL (1.8-7.0) 05/20/18 06:48 Lymph # (Auto) 1.3 K/uL (1.0-4.3) 05/20/18 06:48 [place] # (Auto) 0.4 K/uL (0.0-0.8) 05/20/18 06:48 Eos # (Auto) 0.2 K/uL (0.0-0.7) 05/20/18 06:48 Baso # (Auto) 0.1 K/uL (0.0-0.2) 05/20/18 06:48 PT 12.1 SECONDS (9.7-12.2) 05/18/18 11:15 INR 1.1 05/18/18 11:15 APTT 35 SECONDS (21-34) H 05/18/18 11:15 Sodium 136 mmol/L (132-148) 05/20/18 06:48 Potassium 4.0 mmol/L (3.6-5.2) 05/20/18 06:48 Chloride 104 mmol/L (98-107) 05/20/18 06:48 Carbon Dioxide 26 mmol/L (22-30) 05/20/18 06:48 Anion Gap 11 (10-20) 05/20/18 06:48 BUN 20 mg/dL (7-17) H 05/20/18 06:48 Creatinine 0.8 mg/dL (0.7-1.2) 05/20/18 06:48 Est GFR ( Amer) > 60 05/20/18 06:48 Est GFR (Non-Af Amer) > 60 05/20/18 06:48 Random Glucose 100 mg/dL (65-105) 05/20/18 06:48 Hemoglobin A1c 6.0 % (4.2-6.5) 05/18/18 14:17 Calcium 9.0 mg/dl (8.6-10.4) 05/20/18 06:48 Phosphorus 3.4 mg/dL (2.5-4.5) 05/20/18 06:48 Magnesium 1.9 mg/dL (1.6-2.3) 05/20/18 06:48 Total Bilirubin 0.3 mg/dL (0.2-1.3) 05/20/18 06:48 AST 31 U/L (14-36) 05/20/18 06:48 ALT 23 U/L (9-52) 05/20/18 06:48 Alkaline Phosphatase 74 U/L (38-126) 05/20/18 06:48 Total Creatine Kinase 79 U/L (30-135) 05/18/18 22:05 CK-MB (Mass) 1.41 ng/mL (0.0-3.38) 05/18/18 22:05 Troponin I 0.0490 ng/mL (0.00-0.120) 05/18/18 22:05 Total Protein 7.5 g/dL (6.3-8.3) 05/20/18 06:48 Albumin 4.1 g/dL (3.5-5.0) 05/20/18 06:48 Globulin 3.4 gm/dL (2.2-3.9) 05/20/18 06:48 Albumin/Globulin Ratio 1.2 (1.0-2.1) 05/20/18 06:48 Triglycerides 103 mg/dL (0-149) 05/19/18 07:04 Cholesterol 163 mg/dL (0-199) 05/19/18 07:04 LDL Cholesterol Direct 81 mg/dL (0-129) 05/19/18 07:04 HDL Cholesterol 52 mg/dL (30-70) 05/19/18 07:04 Free T4 1.02 ng/dL (0.78-2.19) 05/18/18 14:50 TSH 3rd Generation 4.02 mIU/L (0.46-4.68) 05/18/18 11:15 Urine Opiates Screen Negative (NEGATIVE) 05/18/18 15:36 Urine Methadone Screen Negative (NEGATIVE) 05/18/18 15:36 Ur Barbiturates Screen Negative (NEGATIVE) 05/18/18 15:36 Ur Phencyclidine Scrn Negative (NEGATIVE) 05/18/18 15:36 Ur Amphetamines Screen Negative (NEGATIVE) 05/18/18 15:36 U Benzodiazepines Scrn Negative (NEGATIVE) 05/18/18 15:36 U Oth Cocaine Metabols Negative (NEGATIVE) 05/18/18 15:36 U Cannabinoids Screen Negative (NEGATIVE) 05/18/18 15:36 - Hospital Course Hospital Course: Upon Admission: Pt is 63 year old female with PMHx of hypothyroidism presenting for sudden-onset palpitations that began today around 8:30 in the morning, associated with dizziness, nausea and diaphoresis. Pt was walking at home when she started developing palpitations. She has had palpitations like this, associated with nausea, vomiting, and dizziness in the past. She went to her PMD's office today, and she was noted to have BP 90s/60s and HR of 160. She was sent to the ED. Pt noted to be in SVT at 171, and this episode persisted until she received adenosine 6 mg IVP in the ED. With the palpitations she had diaphoresis, dizziness and nausea, but denies blurry vision, hearing problems, chest pain, dy spnea, focal weakness, and vomiting. This is not her first episode of palpitations. She states she has had this problem for over ten years. Pt states that her last episode was in February 2018, but did not come to the hospital or see any physician for her problem because it resolved shortly afterwards. Currently, she is asymptomatic and has no complaints. During episode she denies chest pain or difficulty breathing. Currently, she denies dysuria, hematuria, back pain, numbness, tingling, paresthesias, abdominal pain, nausea, vomiting. EKG showed SVT, and patient was given 6mg adenosine in the ED. Pt was admitted for symptomatic SVT. Hospital Course: During the hospital course, pt was treated with Aspirin, Pepcid, Heparin, and Lopressor which were started on the day of admission. Next day she reported improvement in her symptoms, denying any further palpitations, nausea, SOB, or chest pain. 05/18/18: EKG taken at time admission showed supraventricular tachycardia and nonspecific ST abnormality. 05/18/18: CXR was normal appearing and showed no active pulmonary disease 05/19/18: EKG taken next day showed normal sinus rhythm. Troponins were negative Dr. Humphries, EP was consulted, and recommended rhythm control such as amiodarone, sotalol, or ablation. In the interim should ascertain thyroid function and increase beta blockade. Dr. Torres, Cardio was consulted, and recommended starting pt on ASA 81mg PO daily, nuclear stress test, echo cardiogram, and to restart home metoporlol tartrate 25mg PO bid, and heparin PPX. Pt was deemed stable for discharge. Upon Discharge: Pt was discharged with instructions to follow up with Dr. Beltran and Dr. Humphries and to take new medications as prescribed. She was newly prescribed amiodarone 200mg PO BID. Pt understood instructions and agreed. Discharge Exam - Head Exam Head Exam: ATRAUMATIC, NORMOCEPHALIC - Eye Exam Eye Exam: EOMI, PERRL Pupil Exam: NORMAL ACCOMODATION - ENT Exam ENT Exam: Mucous Membranes Moist - Respiratory Exam Respiratory Exam: Clear to PA & Lateral, NORMAL BREATHING PATTERN. absent: Rales, Rhonchi, Wheezes - Cardiovascular Exam Cardiovascular Exam: REGULAR RHYTHM, +S1, +S2. absent: Gallop, Rubs, Systolic Murmur - GI/Abdominal Exam GI & Abdominal Exam: Normal Bowel Sounds, Soft. absent: Distended, Tenderness - Extremities Exam Extremities exam: normal inspection - Neurological Exam Neurological exam: Alert, CN II-XII Intact, Oriented x3 - Psychiatric Exam Psychiatric exam: Normal Affect, Normal Mood - Skin Skin Exam: Normal Color Discharge Plan - Discharge Medications Prescriptions: Amiodarone [Cordarone] 200 mg PO BID #60 tab Aspirin [Ecotrin] 81 mg PO DAILY #30 tabec Levothyroxine [Synthroid] 1 tab PO DAILY #30 tab Metoprolol Tartrate [Lopressor] 1 tab PO BID #60 tab - Follow Up Plan Condition: IMPROVED Disposition: HOME/ ROUTINE Additional Instructions: Please follow up with your primary care physician within 2 weeks. Please follow up with [facility] Department Manager, Dr. Humphries within 2 weeks. Call to make an appointment. Please take your medications as prescribed. If symptoms recur, return to the emergency department. Take care and be well. Por favor mello un seguimiento con gamez mdico de atencin primaria dentro de las 2 semanas. Por favor mello un seguimiento con el cardilogo, el Dr. Humphries dentro de las 2 semanas. Llame al para hacer erwin ivan. Por favor, tome jacqueline medicamentos segn lo prescrito. Si los sntomas se repiten, regrese al departamento de emergencias. Cudate y que ests madisyn. Referrals: Jose Humphries MD [Staff Provider] -
[2018-05-20 16:45] VITALS: TEMP 98
[2018-05-20 17:10] VITALS: BP 129/66
[2018-05-20 18:08] VITALS: PULSE 69
--- NOTE | 2018-05-21 08:25 | CARD ---
APPROVED REPORT Date of service: 05/19/2018 EKG Measurement Heart [id number] CT 154P66 [id number] <Conclusion> Normal sinus rhythm Normal ECG
--- NOTE | 2018-05-21 08:26 | CARD ---
APPROVED REPORT Date of service: 05/19/2018 EKG Measurement Heart [id number] [place] 156P63 [id number] <Conclusion> Normal sinus rhythm Normal ECG
[2018-05-22 08:01] VITALS: O2SAT 95
== END 2018-05-20 20:10 | disposition home or self-care (01) ==
LOC: C.ER 11:02 → C.9E 12:55 → C.6T 15:05
PROVIDERS: ADMIT Internal Medicine; ATTEND Internal Medicine
DX: I47.1 Supraventricular tachycardia (principal); E03.9 Hypothyroidism, unspecified; I10 Essential (primary) hypertension
CPT/HCPCS: 36415; 71045; 80053; 80061; 80324; 80345; 80346; 80349; 80353; 80358; 80361; 83036; 83735; 83992; 84100; 84439; 84443; 84484; 85025; 85610; 85730; 93005; 93306; 96361; 96372; 96374; 99285; G0378; J0153; J1644; J2785; J7030